=== PATIENT | female | born 1955 ===

== ENCOUNTER 2022-05-19 05:40 | Day surgery (SDC) | payer OTHER ==
[~2022-05-19 05:40] MED LIST: LEVOTHYROXINE25 MCG PO; LIPITOR20 MG PO
== END 2022-05-19 09:30 | disposition home or self-care (01) ==
LOC: CIR.AMB 05:40
PROVIDERS: ATTEND Surgery
DX: L72.0 Epidermal cyst (principal); Z20.822 Contact with and (suspected) exposure to COVID-19; Z86.16 Personal history of COVID-19; F17.210 Nicotine dependence, cigarettes, uncomplicated; E03.9 Hypothyroidism, unspecified